=== PATIENT | female | born 1975 | race American Indian/Alaskan Native ===

== ENCOUNTER 2021-05-21 10:36 | Emergency (ER) | payer OTHER ==
[2021-05-21 10:41] VITALS: BP 132/86
== END 2021-05-21 11:17 | disposition home or self-care (01) ==
LOC: ED 10:36
DX: L29.2 Pruritus vulvae (principal); Z53.21 Procedure and treatment not carried out due to patient leaving prior to being seen by health care provider
CPT/HCPCS: 99282